=== PATIENT | male | born 1950 | race Caucasian/White ===

== ENCOUNTER 2017-10-04 08:48 | Day surgery (SDC) | payer OTHER ==
[2017-10-03 16:15] VITALS: BMI 27.2
[2017-10-04] MEDS ORDERED: MIDAZOLAM HCL 2 MG/2 ML SINGLE DOSE VIAL ONE (10:16)
[2017-10-04] MEDS ORDERED: SULFAMETHOXAZOLE/TRIMETHOPRIM 800MG/160MG D.S. TABLET PO ONE (10:35)
[2017-10-04] MEDS ORDERED: TAMSULOSIN HCL 0.4 MG CAP.ER.24H (FP) PO ONE ×2 (10:35→12:04)
[2017-10-04] MEDS ORDERED: ACETAMINOPHEN 325 MG TABLET (FP) PO PRN ×2 (10:35→12:04)
[2017-10-04] MEDS ORDERED: GENTAMICIN SO4 80 MG/2 ML VIAL ONE (10:50)
[2017-10-04] MEDS ORDERED: ceFAZolin SODIUM 1 GM VIAL IVPB ONE (10:56)
[2017-10-04] MEDS ORDERED: oxyCODONE HCL 5 MG TABLET PO PRN (11:21)
[2017-10-04] MEDS ORDERED: ONDANSETRON 4 MG/2 ML VIAL IVPUSH PRN (11:21)
[2017-10-04] MEDS ORDERED: ACETAMINOPHEN 1000 MG/100 ML VIAL (NON FORMULARY) IVPB ONE (11:22)
[2017-10-04] MEDS ORDERED: LACTATED RINGERS SOLUTION 1,000 ML IV SCH (11:30)
[2017-10-04] MEDS ORDERED: HYDROmorphone HCL CARPU-JECT 2 MG/1 ML DISP.SYRIN IM ONE (12:04)
--- NOTE | 2017-10-04 12:17 | OP ---
Operative Note - Note: Operative Date: 10/04/17 Pre-Operative Diagnosis: lt. renal pelvic tumor/urethral stricture disease/bph with luts Operation: cysto oiu,lt. retro lt. ureteroscopy/pyeloscopy and lt. renal pelvic biopsy with fulgeration of bleeding, and placement of a 24cm. 7f. jj stent Findings: renal pelvic papillary tumor Post-Operative Diagnosis: Same as Pre-op Surgeon: Nilesh Armendariz Anesthesia: General Specimens Removed: renal pelvic tumor tissue, urine for cytology and fish Estimated Blood Loss (mls): 20 Drains & Tubes with Location: 24cm-7f jj stent on left side Blood Volume Replaced (mls): 0 Fluid Volume Replaced (mls): 0 Operative Report Dictated: Yes
[2017-10-04] MEDS ORDERED: PHENAZOPYRIDINE HCL 100 MG TABLET (FP) PO ONE (12:29)
[2017-10-04] MEDS ORDERED: ACETAMINOPHEN INJECTION 100 ML IVPB ONE (12:30)
[2017-10-04] MEDS ORDERED: PHENAZOPYRIDINE HCL 100 MG TABLET (FP) ONE (12:43)
[2017-10-04 13:30] VITALS: PULSE 84
[2017-10-04 13:31] VITALS: TEMP 97.4
--- NOTE | 2017-10-04 14:21 | OP ---
DATE OF OPERATION: 10/04/2017 SURGEON: Nilesh Armendariz MD PREOPERATIVE DIAGNOSIS: Left hydronephrosis, left renal pelvic lesion, obstructive uropathy. POSTOPERATIVE DIAGNOSIS: Urethral stricture disease, benign prostatic hypertrophy, left hydronephrosis, left renal pelvic mass. OPERATIVE PROCEDURE: Cystourethroscopy, optical internal urethrotomy, left retrograde pyelogram, left ureteroscopy, left pyeloscopy, left renal pelvic biopsy, left renal pelvic cauterization for hemostasis, and placement of a left JJ stent. ANESTHESIA: General. DESCRIPTION OF PROCEDURE: Under above stated anesthesia, patient was prepped and draped in the usual sterile manner. He was placed in the dorsal lithotomy position. External genitalia were within normal limits. Prostate was 2+, smooth, benign, nontender. A continuous fluoroscope was introduced under direct vision. Anterior urethra was within normal limits. Bulbous urethra revealed a diaphragm type stricture at the distal end. Therefore, a urethrotome was introduced, the stricture was excised at the 12 o'clock position. This was cut to the corpus spongiosum. No extravasation or bleeding was noted. The area past the stricture was wide open. Therefore, the cystoscope was reintroduced. The prostatic urethra revealed a high median lobe with bilateral kissing of the lateral lobes. The bladder was entered. Urine was collected for culture as well as cytology and FISH. No lesions were noted. No calculi were seen. Inspection of the left ureteral orifice revealed a pinkish efflux of urine. Therefore a Flexi-Tip Catheter was placed in the left ureteral orifice, and 5 mL of contrast was injected. This revealed a normal lower 2/3 of the ureter with multiple filling defects of the upper ureter, ureteropelvic junction, and renal pelvis. There also appeared to be calyceal dilation. Therefore, a Glidewire was passed up the left renal unit, the cystoscope was removed, and a ureteroscope was introduced. Ureteroscopy revealed a normal lower ureter. Middle and upper lower ureter were also normal. On entering the upper 1/3 of the upper ureter, multiple papillary tumors were seen. On entering the renal pelvis, the entire pelvis was filled with papillary tumor, which was friable, and some areas were bleeding. Multiple biopsies were taken from the renal pelvis and upper ureter. The areas that were bleeding were then fulgurated with a Bugbee. No active bleeding was noted. The ureteroscope was then removed. A 24-cm 7-Frisian JJ stent was left in place. X-rays confirmed good position of the stent. The bladder was emptied. The scope was removed. The patient tolerated the procedure well. He returned to the recovery room in good condition. Luis DE [id number] cc: Kobe Ochoa MD
[2017-10-04 14:26] VITALS: BP 110/79
--- NOTE | 2017-10-04 14:27 | HP ---
DATE OF ADMISSION: DATE OF DICTATION: 10/04/2017 HISTORY OF PRESENT ILLNESS: Patient is a 67-year-old male, had 1 episode of gross total painless hematuria several weeks earlier. Patient was treated with Augmentin and felt better. A CAT scan of his abdomen revealed the left renal pelvis to be dilated and to have a filling defect in the collecting system. Patient also complains of urinary frequency, wakes up twice at night. He has some urgency. Denies any hematuria at present. PAST MEDICAL HISTORY: He does have history of high blood pressure and coronary artery disease. PAST SURGICAL HISTORY: He has undergone angioplasties with 4 coronary stents 6 years earlier. In 2008, he underwent a hemicolectomy for a large polypoid lesion. He did not receive any chemotherapy or radiation postop. Patient also underwent a right carotid endarterectomy 5 years earlier. SOCIAL HISTORY: He is with 1 son. The patient did smoke between the ages of 19 and 46. He quit smoking 20 years ago. He denies any chemical exposures. MEDICATIONS: Presently he takes Xanax for anxiety, ramipril, aspirin, Xarelto, Lortab, Crestor. 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 PHYSICAL EXAMINATION: General: Revealed a well-developed, well-oriented adult male. Abdomen: Soft. There was some left CVA tenderness. Genitalia: Atraumatic. The right hemiscrotum was empty. A left inguinal testicle was palpated. The patient is not circumcised. Left testicle is normal. No hernias or hydroceles were elicited. Meatus is adequate. Rectal: His prostate is 2+ and smooth. LABORATORY DATA: The urinalysis in the office revealed a large amount of blood. IMPRESSION: At present is left mild hydronephrosis with filling defect in left renal pelvis, must rule out transitional cell carcinoma of renal pelvis. PLAN: Will suggest obtaining a cystourethroscopy, left retrograde pyelogram, left ureteroscopy, left pyeloscopy with biopsy and fulguration and placement of a left double-J stent. This was explained in detail to the patient and we will proceed. Patient has been commenced on Bactrim DS 1tablet p.o. b.i.d. He is also taking Flomax 0.4 mg daily. After his renal situation is resolved, would consider a right scrotal exploration with possible orchiectomy for his right undescended testicle. Luis [id number]
--- NOTE | 2017-10-08 11:54 | PATH ---
Surgical Pathology Report Patient Name: EVERARDO WHITE Med. Rec. #: [id number] /Age/Gender: 1950 (Age: 67) / M Account: [id number] Location: [facility] Taken: 10/04/2017 Received: 10/04/2017 Reported: 10/08/2017 Physicians: Luis Naik M.D. Specimen(s) Received BX LEFT RENAL PELVIC LESIONS Clinical History Preoperative diagnosis: Pelvic tumor Postoperative diagnosis: Rule out TCC Final Diagnosis LEFT RENAL PELVIS, BIOPSY: LOW GRADE PAPILLARY UROTHELIAL CARCINOMA, FOCALLY INVASIVE INTO LAMINA PROPRIA. NO LYMPH-VASCULAR INVASION IDENTIFIED. NO FLAT UROTHELIAL CARCINOMA IN SITU IDENTIFIED. Comment: Recommend correlation with clinical findings and follow up as clinically indicated. This case was discussed with Dr. Ochoa, and Dr. Venegas covering for on 10/08/2017. Electronically Signed Reynaldo Melissa M.D. Gross Description Received in formalin labeled "left renal pelvic lesions," is a 0.5 x 0.4 x 0.1 cm aggregate of tavares soft tissue fragments. The formalin is filtered and the specimen is entirely submitted in one cassette. 10/04/201710/04/2017
--- NOTE | 2017-10-09 12:26 | PATH ---
Cytology Non-Gynecological Report Patient Name: EVERARDO WHITE [facility]. Rec. #: [id number] /Age/Gender: 1950 (Age: 67) / M Account: [id number] Location: [facility] Taken: 10/04/2017 Received: 10/04/2017 Reported: 10/09/2017 Physicians: Nilesh Armendariz M.D. Specimen(s) Received URINE VOIDED Clinical History Hematuria Final Diagnosis URINE FOR CYTOLOGY: SATISFACTORY FOR EVALUATION. ATYPICAL UROTHELIAL CELLS. SCATTERED ATYPICAL UROTHELIAL CELLS DISPERSED CLUSTERS AND FEW FRAGMENTS PRESENT. RED BLOOD CELLS PRESENT. Comment: See concurrent renal pelvis biopsy ([id number]). Findings discussed with Dr. Gaston. Electronically Signed Edith Khanna M.D.
== END 2017-10-04 14:30 | disposition home or self-care (01) ==
LOC: JASU-SURG 08:48
PROVIDERS: ATTEND Urology
PROC: 0T578ZZ Destruction of Left Ureter, Via Natural or Artificial Opening Endoscopic (ICD-10-PCS; 2017-10-04)
PROC: 0T9780Z Drainage of Left Ureter with Drainage Device, Via Natural or Artificial Opening Endoscopic (ICD-10-PCS; 2017-10-04)
PROC: 0TB48ZX Excision of Left Kidney Pelvis, Via Natural or Artificial Opening Endoscopic, Diagnostic (ICD-10-PCS; 2017-10-04)
PROC: 0TND8ZZ Release Urethra, Via Natural or Artificial Opening Endoscopic (ICD-10-PCS; principal; 2017-10-04 10:30)
PROC: BT1FYZZ Fluoroscopy of Left Kidney, Ureter and Bladder using Other Contrast (ICD-10-PCS; 2017-10-04 10:30)
PROC: 0T5 Urinary System, Destruction (ICD-10-PCS; 2017-10-04 10:30)
DX: N13.1 Hydronephrosis with ureteral stricture, not elsewhere classified (principal); C65.2 Malignant neoplasm of left renal pelvis; N40.0 Benign prostatic hyperplasia without lower urinary tract symptoms
CPT/HCPCS: 76000-TC; 87086; 88108; 88305-TC; 94760